=== PATIENT | male | born 1960 | race Caucasian/White ===

== ENCOUNTER 2022-10-22 15:42 | Inpatient (IN) | payer SELFPAY ==
[2022-10-22 16:57] LABS: #Eosinphils 0.3 thou/uL (0.0-0.7); #Monocytes 0.8 thou/uL (0.11-0.59); #Neutrophils 6.3 thou/uL (1.40-6.50); %Basophils 0.4 % (0.0-1.0); %Eosinophils 3.3 % (0.0-10.0); %Lymphocytes 21.2 % (21.0-51.0); Hemoglobin 14.6 g/dL (14.0-18.0); Mean Corpuscular HGB CONC 34.3 g/dL (32.0-36.0); Mean Corpuscular Hemoglobin 34.2 pg (27.0-31.0); Mean Corpuscular Volume 99.7 fl (78.0-98.0); Mean Platelet Volume 9.3 fL (7.4-10.4); Platelet Count 133 10x3/uL (130-400); RBC Distribution Width 12.3 % (11.5-14.5); Red Blood Cell (RBC) Count 4.28 mill/uL (4.70-6.10); White Blood Cell (WBC) Count 9.4 10x3/uL (4.8-10.8)
[2022-10-22 17:18] LABS: Anion Gap 10 mmol/L (10-20); BUN (Urea Nitrogen) 13 mg/dL (8.4-25.7); Calc. Creatinine Clearance 0 mL/min (70-130); Carbon Dioxide 27 mmol/L (23-31); Chloride 107 mmol/L (98-107); Potassium 3.6 mmol/L (3.5-5.1); Sodium 140 mmol/L (136-145)
[2022-10-22 17:19] LABS: ALT (SGPT) 15 U/L (8-55); AST (SGOT) 15 U/L (5-34); Albumin 3.9 g/dL (3.4-4.8); Alkaline Phosphatase 70 U/L (40-110); Bilirubin, Total 0.4 mg/dL (0.2-1.2); Calcium 9.1 mg/dL (7.8-10.44); Estimated GFR 88; Globulin 2.9 g/dL (2.4-3.5); Glucose 106 mg/dL (80-115); Protein, Total 6.8 g/dL (5.8-8.1)
[2022-10-22 19:35] LABS: Bilirubin Negative (Negative); Blood, Urine Negative (Negative); Clarity Clear (Clear); Glucose, Urine (Dipstick) Normal (Negative); Ketone, Urine Negative (Negative); Leukocyte Negative Leu/uL (Negative); Nitrite Negative (Negative); Protein, Urine (Dipstick) Negative (Neg-Trace); Specific Gravity, Urine 1.018 (1.002-1.036)
[2022-10-22 20:27] LABS: CKMB 2.7 ng/mL (0-6.6)
[2022-10-22 22:09] LABS: Troponin I 0.105 ng/mL (< 0.028)
[2022-10-22] MEDS: HYDROcodone/Acetaminophen 5/325 mg Tablet PO PRN (22:51)
[2022-10-23 02:05] LABS: Troponin I 0.098 ng/mL (< 0.028)
[2022-10-23] MEDS ORDERED: traZODone HCl 50 MG TAB PO SCH (03:30)
[2022-10-23] MEDS: HYDROcodone/Acetaminophen 5/325 mg Tablet PO PRN ×4 (03:38→20:21)
[2022-10-23] MEDS: Aspirin 325 mg Enteric Coated Tablet PO SCH (08:41)
[2022-10-23] MEDS ORDERED: traZODone HCl 50 MG TAB PO PRN (20:43)
[2022-10-24 05:27] LABS: Hemoglobin 14.5 g/dL (14.0-18.0); Mean Corpuscular HGB CONC 33.8 g/dL (32.0-36.0); Mean Corpuscular Hemoglobin 33.6 pg (27.0-31.0); Mean Corpuscular Volume 99.5 fl (78.0-98.0); Mean Platelet Volume 9.6 fL (7.4-10.4); Platelet Count 124 10x3/uL (130-400); RBC Distribution Width 12.3 % (11.5-14.5); Red Blood Cell (RBC) Count 4.31 mill/uL (4.70-6.10); White Blood Cell (WBC) Count 8.3 10x3/uL (4.8-10.8)
[2022-10-24 06:42] LABS: ALT (SGPT) 12 U/L (8-55); AST (SGOT) 11 U/L (5-34); Albumin 3.5 g/dL (3.4-4.8); Alkaline Phosphatase 65 U/L (40-110); Anion Gap 13 mmol/L (10-20); BUN (Urea Nitrogen) 18 mg/dL (8.4-25.7); Bilirubin, Total 0.4 mg/dL (0.2-1.2); Calc. Creatinine Clearance 88 mL/min (70-130); Calcium 8.9 mg/dL (7.8-10.44); Carbon Dioxide 23 mmol/L (23-31); Chloride 107 mmol/L (98-107); Estimated GFR 95; Globulin 2.7 g/dL (2.4-3.5); Glucose 104 mg/dL (80-115); Potassium 4.1 mmol/L (3.5-5.1); Protein, Total 6.2 g/dL (5.8-8.1); Sodium 139 mmol/L (136-145)
[2022-10-24 07:01] LABS: CKMB 2.1 ng/mL (0-6.6)
[2022-10-24] MEDS ORDERED: Communication Order-Pharmacy FS SCH (09:30)
[2022-10-24] MEDS: Aspirin 325 mg Enteric Coated Tablet PO SCH (10:18)
[2022-10-25] MEDS ORDERED: Sodium Chloride 0.9% 1,000 ML IV SCH ×2 (06:00→08:24)
[2022-10-25] MEDS: Aspirin 325 mg Enteric Coated Tablet PO SCH (06:09)
[2022-10-25] MEDS ORDERED: fentaNYL 50 mcg/mL 1 mL Vial ONE ×2 (06:14→07:46)
[2022-10-25] MEDS ORDERED: Midazolam HCl 2 mg/2 ml Vial ONE (06:14)
[2022-10-25] MEDS ORDERED: Lidocaine 1% (PF) 30 ML VIAL ONE (06:15)
[2022-10-25] MEDS ORDERED: Heparin 10,000 UNITS/ 10 ML VIAL ONE (06:15)
[2022-10-25] MEDS ORDERED: Protamine Sulfate 50 MG/5 ML VIAL ONE (06:15)
[2022-10-25] MEDS ORDERED: Sodium Chloride 0.9% 200 ML IV PRN (08:23)
[2022-10-25] MEDS ORDERED: Acetaminophen/Codeine 30-300mg Tablet PO PRN ×2 (08:23)
[2022-10-25] MEDS ORDERED: Nitroglycerin 0.4 MG TAB (25 Tab Bottle) SL PRN (08:23)
[2022-10-25] MEDS ORDERED: Iopamidol 370 76% 100 ML VIAL ONE (09:56)
[2022-10-25] MEDS: Atorvastatin Calcium 40 MG TAB PO SCH (20:06)
[2022-10-26 05:05] LABS: Hemoglobin 14.3 g/dL (14.0-18.0); Mean Corpuscular HGB CONC 33.5 g/dL (32.0-36.0); Mean Corpuscular Hemoglobin 33.3 pg (27.0-31.0); Mean Corpuscular Volume 99.3 fl (78.0-98.0); Mean Platelet Volume 9.8 fL (7.4-10.4); Platelet Count 132 10x3/uL (130-400); RBC Distribution Width 12.3 % (11.5-14.5); Red Blood Cell (RBC) Count 4.29 mill/uL (4.70-6.10)
[2022-10-26 05:24] LABS: ALT (SGPT) 13 U/L (8-55); AST (SGOT) 18 U/L (5-34); Albumin 3.8 g/dL (3.4-4.8); Alkaline Phosphatase 73 U/L (40-110); Anion Gap 14 mmol/L (10-20); BUN (Urea Nitrogen) 21 mg/dL (8.4-25.7); Bilirubin, Total 0.4 mg/dL (0.2-1.2); Calc. Creatinine Clearance 85 mL/min (70-130); Carbon Dioxide 23 mmol/L (23-31); Chloride 106 mmol/L (98-107); Estimated GFR 92; Globulin 2.9 g/dL (2.4-3.5); Glucose 109 mg/dL (80-115); Potassium 3.8 mmol/L (3.5-5.1); Protein, Total 6.7 g/dL (5.8-8.1); Sodium 139 mmol/L (136-145)
[2022-10-26] MEDS: Tamsulosin HCl 0.4 MG CAP PO SCH (08:48)
[2022-10-26] MEDS: Aspirin 325 mg Enteric Coated Tablet PO SCH (08:48)
[2022-10-26] MEDS: Atorvastatin Calcium 40 MG TAB PO SCH (20:08)
[2022-10-27] MEDS: Aspirin 325 mg Enteric Coated Tablet PO SCH (08:39)
[2022-10-27] MEDS: Tamsulosin HCl 0.4 MG CAP PO SCH (08:39)
[2022-10-27] MEDS: Atorvastatin Calcium 40 MG TAB PO SCH (20:55)
[2022-10-27 22:24] LABS: Acetaminophen Less than 10.0 mcg/mL (10.0-30.0); Alcohol Less than 10 mg/dL (Less than 10); Salicylate Less than 8.0 mg/dL (15.0-30.0)
[2022-10-28 04:16] LABS: Amphetamine Not Detected (NotDetected); Barbiturates Screen Not Detected (NotDetected); Benzodiazepine Screen Not Detected (NotDetected); Cocaine Metabolite Screen Not Detected (NotDetected); Methadone Not Detected (NotDetected); Methamphetamine Not Detected (NotDetected); Opiate Screen Detected (NotDetected); Oxycodone Screen Not Detected (NotDetected); Phencyclidine (PCP) Not Detected (NotDetected); THC/Cannabinoid Screen Not Detected (NotDetected); Tricyclic Screen Not Detected (NotDetected)
[2022-10-28] MEDS: Tamsulosin HCl 0.4 MG CAP PO SCH (09:08)
[2022-10-28] MEDS: Aspirin 325 mg Enteric Coated Tablet PO SCH (09:08)
[2022-10-28 12:19] VITALS: BP 126/79; TEMP 98.2
[2022-10-28 14:03] VITALS: BMI 22.9
== END 2022-10-28 14:25 | disposition home or self-care (01) | DRG 286 ==
LOC: ERS 15:42 → NEURO 21:07 → 2SW 10-23 19:51 → OBSVTOIN 10-24 13:32
PROVIDERS: ADMIT Hospitalist; ATTEND Family Medicine
PROC: 4A023N7 Measurement of Cardiac Sampling and Pressure, Left Heart, Percutaneous Approach (ICD-10-PCS; principal; 2022-10-25)
PROC: B2111ZZ Fluoroscopy of Multiple Coronary Arteries using Low Osmolar Contrast (ICD-10-PCS; 2022-10-25)
PROC: B2151ZZ Fluoroscopy of Left Heart using Low Osmolar Contrast (ICD-10-PCS; 2022-10-25)
DX: I25.10 Atherosclerotic heart disease of native coronary artery without angina pectoris (principal); G93.41 Metabolic encephalopathy; F03.90 Unspecified dementia, unspecified severity, without behavioral disturbance, psychotic disturbance, mood disturbance, and anxiety; I25.5 Ischemic cardiomyopathy; I08.3 Combined rheumatic disorders of mitral, aortic and tricuspid valves; W17.89XA Other fall from one level to another, initial encounter; R77.8 Other specified abnormalities of plasma proteins; R79.89 Other specified abnormal findings of blood chemistry; F17.210 Nicotine dependence, cigarettes, uncomplicated; S93.401A Sprain of unspecified ligament of right ankle, initial encounter; S82.402A Unspecified fracture of shaft of left fibula, initial encounter for closed fracture
CPT/HCPCS: 36415; 70450; 70551; 71045; 80053; 80061; 80306; 80307; 81003; 82553; 83880; 84443; 84484; 85025; 85027; 85347; 93005; 93306; 93456; 93798; 93880; 94760; 99152; 99153; C1751; C1769; C1894; G0378; J1644; J2001; J2250; J2720; J3010; J7050; Q9967